=== PATIENT | female | born 1980 | race Caucasian/White ===

== ENCOUNTER → 2024-08-30 | Outpatient (CLI) | payer BC ==
[2024-08-30 08:51] LABS: CARBON DIOXIDE 25 mEq/L (21-32); CHLORIDE 103 mEq/L (98-107); POTASSIUM 4.1 mEq/L (3.5-5.1); SODIUM 139 mEq/L (136-145)
[2024-08-30 08:52] LABS: CALCIUM 9.3 mg/dL (8.7-10.4)
[2024-08-30 08:57] LABS: CREATININE 0.7 mg/dL (0.6-1.0); GLUCOSE 91 mg/dL (70-105); TRIGLYCERIDE 147 mg/dL (0-150); UREA NITROGEN BLOOD 12 mg/dL (9-23)
[2024-08-30 08:58] LABS: ALANINE AMINOTRANSFERASE < 7 IU/L (10-49); LDL CHOLESTEROL 106 mg/dL (5-100)
[2024-08-30 08:59] LABS: ALBUMIN 4.8 g/dL (3.2-4.8); ASPARTATE AMINOTRANSFERASE 17 IU/L (<34); BILIRUBIN DIRECT 0.1 mg/dL (<=3.0); BILIRUBIN TOTAL 0.6 mg/dL (0.1-1.0); CHOLESTEROL 159 mg/dL (<200); HDL CHOLESTEROL 35 mg/dL (>65); PROTEIN TOTAL 7.8 g/dL (6.0-8.3)
[2024-08-31 09:10] LABS: VITAMIN D 25-OH 23.7 ng/mL (30.0-100.0)
[2024-08-31 13:08] LABS: ANTI-NUCLEAR ANTIBODIES DIRECT Negative (Negative)
== END | disposition home or self-care (01) ==
LOC: LAB 07:52
PROVIDERS: ATTEND Nurse Practitioner Acute Care
DX: G72.49 Other inflammatory and immune myopathies, not elsewhere classified (principal); E66.09 Other obesity due to excess calories; R53.83 Other fatigue; E88.819 Insulin resistance, unspecified
CPT/HCPCS: 36415; 80048; 80061; 80076; 82306; 83036; 84443; 85651; 86038